=== PATIENT | female | born 1945 | race Hispanic/Latino ===

== ENCOUNTER 2019-07-04 17:45 | Emergency (ER) | payer MEDICARE, MEDICAID, SELFPAY ==
[2019-07-04 18:07] VITALS: BP 154/76; PULSE 62; RESP 16; TEMP 36.6; O2SAT 99
--- NOTE | 2019-07-04 19:13 | DI.RAD.S_ITS ---
PROCEDURE: XR KNEE LT 1TO2V INDICATIONS: knee pain TECHNIQUE: 2 views of the knee were acquired. COMPARISON: [facility], CR, XR KNEE 3 VIEWS LEFT, 02/13/2018, 15:04. FINDINGS: Bones: No fractures or dislocations. No suspicious bony lesions. Moderate medial femorotibial joint space narrowing is seen, with associated subchondral sclerosis and irregularity. Milder degenerative changes are seen elsewhere. Soft tissues: There is a small joint effusion. No suspicious soft tissue calcifications. IMPRESSION: Osteoarthritic degenerative changes are seen, which are most prominent medially. The imaging appearance is similar to 2018. Dictated by: Kali Charles M.D. on 07/04/2019 at 19:46 Approved by: Kali Charles M.D. on 07/04/2019 at 19:46
--- NOTE | 2019-07-04 19:15 | ED.LOWEXIN ---
HPI - Extremity Injury (Lower) General Chief Complaint: Extremity Injury, Lower Stated Complaint: Alot of pain in LT knee Time Seen by Provider: 07/04/19 19:01 Source: patient and family Mode of arrival: ambulatory Limitations: language barrier History of Present Illness HPI Narrative: Patient is a 73-year-old female. Is Bengali-speaking only however is in the emergency department with her daughter who can speak Icelandic. The initial HPI and review of systems was provided by the patient's daughter. The translation line was then used to speak directly with the patient. Was reported that approximately 4 months ago the patient started to have a rash on her left knee. Patient's daughter states that she was seen by a ?specialist? who diagnosed her with shingles. It does not appear that she was started on any antiviral medications. She was given a prescription of gabapentin that she has been taking. They report that over the past several days/weeks patient has had an increase in the pain on her left knee. Patient does describe it as a deep pain on the inside of the knee and also pain on the skin. There is no further rashes apparent today. No fevers. No specific trauma. patient does not have a history of gout. Related Data Previous Rx's Medication Instructions Recorded hydrocodone-acetaminophen [[place]] 1 tab PO Q4-6H PRN #14 tab 07/04/19 naproxen [Naprosyn] 500 mg PO BID PRN #60 tab 07/04/19 Allergies Allergy/AdvReac Type Severity Reaction Status Date / Time No Known Drug Allergies Allergy Verified 07/04/19 18:11 Review of Systems Review of Systems Narrative: Provided by the patient and the daughter Constitutional Constitutional: Denies fever(s) and Denies headache(s) ENT Ears, Nose, Mouth, and Throat: Denies headache(s) and Denies disequilibrium Cardiovascular Cardiovascular: Denies chest pain and Denies dyspnea Respiratory Respiratory: Denies dyspnea Gastrointestinal Gastrointestinal: Denies abdominal pain, Denies nausea and Denies vomiting Genitourinary Genitourinary: Denies dysuria Musculoskeletal Musculoskeletal: Reports abnormal gait Comments: Left knee pain Integumentary/Breasts Skin/Breast: Denies rash Neurologic Neurologic: Reports abnormal gait, Denies behavioral changes, Denies headache(s) and Denies disequilibrium Psychiatric Psychiatric: Denies behavioral changes Hematologic/Lymphatic Hematologic/Lymphatic: Denies easy bleeding and Denies easy bruising Allergic/Immunologic Allergic/Immunologic: Denies urticaria PFSH Medical History Arthritis (Acute) Shingles (Acute) Social History Smoking Status: Never smoker Social History Smoking Status: Never smoker Exam Initial Vital Signs Initial Vital Signs: Vital Signs Temperature 97.8 F 07/04/19 18:07 Pulse Rate 62 07/04/19 18:07 Respiratory Rate 16 07/04/19 18:07 Blood Pressure 154/76 H 07/04/19 18:07 Pulse Oximetry 99 07/04/19 18:07 Const General: cooperative, healthy appearing, comfortable, well developed and well groomed Orientation: alert and awake HENPA Head: normal to inspection and normocephalic Resp Effort & Inspection: normal respiratory effort Auscultation: clear to auscultation bilaterally Cardio Rate: regular rate Rhythm: regular rhythm Pulses: dorsalis pedis present on the left Skin Lesions: no lesions Rashes: no rashes Neuro General: alert and awake Speech: speech normal Motor: muscle tone normal throughout Sensory Exam: no sensory deficits noted Extrem General: normal to inspection, capillary refill normal and No edema Other: No swelling about the left knee. Does have tenderness to palpation with flexion of the knee. Left ankle left hip and left thigh and left lower leg unremarkable. no effusion of the left knee. Psych Appearance: grossly normal and well kempt Course Orders Ordered: ED Orders 07/04/19 19:13 XR knee LT 1to2V Stat 07/04/19 19:40 Basic Metabolic Panel Stat C-Reactive Protein Quant Stat Complete Blood Count AUTO DIFF Stat Erythrocyte Sedimentation Rate Stat Uric Acid Stat Discontinued Medications Morphine Sulfate (Morphine) 4 mg IV NOW ONE Stop: 07/04/19 19:14 Last Admin: 07/04/19 19:47 Dose: 4 mg Documented by: MARIMAR Vital Signs Vital signs: Vital Signs - 8 hr 07/04/19 18:07 07/04/19 21:40 Temperature 97.8 F Pulse Rate 62 76 Respiratory Rate 16 16 Blood Pressure 154/76 H 159/72 H Pulse Oximetry 99 98 MDM - Extremity Injury (Lower) Lab Data Attestation: I reviewed the patient's lab results. Result diagrams: 07/04/19 19:40 07/04/19 19:40 Labs: Lab Results 07/04/19 07/04/19 07/04/19 Range/Units 19:40 19:40 19:40 WBC 9.1 (4.5-11.0) X10^3/uL RBC 4.48 (4.0-5.2) X10^6/uL Hgb 13.7 (12.0-16.0) g/dL Hct 40.4 (36-46) % MCV 90.1 (80-100) fL MCH 30.6 (26-34) PG MCHC 34.0 (30-36) % RDW 13.1 (11.6-14.8) % Plt Count 310 (150-400) X10^3/uL Neut % (Auto) 52.6 (50-75) % Lymph % (Auto) 33.3 (25-40) % [place] % (Auto) 10.6 (3-14) % Eos % (Auto) 2.7 (2-4) % Baso % (Auto) 0.8 (0-2) % Neut # (Auto) 4800 (1593-9149) /uL Lymph # (Auto) 3000 (3438-2509) /uL [place] # (Auto) 1000 H (0-900) /uL Eos # (Auto) 200 (0-450) /uL Baso # (Auto) 100 (0-100) /uL ESR 30 H (0-20) MM/HR Sodium 141 (137-145) mmol/L Potassium 3.8 (3.4-5.1) mmol/L Chloride 103 (98-107) mmol/L Carbon Dioxide 29 (22-32) mmol/L BUN 11 (7-17) mg/dL Creatinine 0.40 L (0.52-1.04) mg/dL Estimated GFR > 60.0 (>60) mL/min BUN/Creatinine Ratio 27.5 H (6-22) Glucose 102 (80-110) mg/dL Uric Acid 4.5 (2.5-6.2) mg/dL Calcium 10.0 (8.4-10.2) mg/dL C-Reactive Protein 0.5 (<1.0) mg/dL Imaging Data Knee x-ray: Radiologist's impression: [address] [address] XRay Report Signed Patient: Lulu Chavez R#: [id number] : 4Acct:[id number] Age/Sex: 73 / FDate of Service: 07/04/19 Loc: ED Accession Number: [id number] Procedure: XR knee LT 1to2V Ordering Provider: Eitan Miranda D.O. PROCEDURE: XR KNEE LT 1TO2V INDICATIONS: knee pain TECHNIQUE: 2 views of the knee were acquired. COMPARISON: [facility], CR, XR KNEE 3 VIEWS LEFT, 02/13/2018, 15:04. FINDINGS: Bones: No fractures or dislocations. No suspicious bony lesions. Moderate medial femorotibial joint space narrowing is seen, with associated subchondral sclerosis and irregularity. Milder degenerative changes are seen elsewhere. Soft tissues: There is a small joint effusion. No suspicious soft tissue calcifications. IMPRESSION: Osteoarthritic degenerative changes are seen, which are most prominent medially. The imaging appearance is similar to 2018. Dictated by: Kali Charles M.D. on 07/04/2019 at 19:46 Approved by: Kali Charles M.D. on 07/04/2019 at 19:46 MDM Narrative Medical decision making narrative: Patient does report improvement of her symptoms after medications. The x-ray shows no fractures but does show arthritis in the medial compartment the knee. Her skin over the knee shows no signs of cellulitis. She is able to bend her knee however does have some discomfort with this. No fevers. Uric acid, white blood cell count, CRP unremarkable. ESR is elevated but this is nonspecific. I do have a low suspicion for a septic joint. Also him of a low suspicion for a current case of shingles. I do think that the arthritis in her knee is contributing to her symptoms. There is also a strong chance that she has post herpetic neuralgia. I did talk with the family through the translation line regarding symptoms. She is going to continue the gabapentin. We also start her on an anti-inflammatory. They were informed to take this with food. Also send home with a very short course of pain medication. They were given the phone number that they could call to establish a primary provider here in the area. Patient's daughter stated that she has a follow-up with the ?specialist? next week. This was the individual who apparently initially diagnosed the shingles and started the patient on gabapentin. There informed to keep this appointment. They were given return precautions and follow-up instructions. They expressed understanding and agreement with plan. Discharge Plan Departure Patient Disposition: Home Clinical Impression: Arthritis, Post herpetic neuralgia Discharge Date/Time: 07/04/19 21:40 Instructions: DI for Arthritis Activity Restrictions/Additional Instructions: Continue the medication that your currently taking. Take the Naprosyn and as directed with some food. Use the hydrocodone/acetaminophen as needed for breakthrough pain. You can contact 360 help you establish a primary provider here in the local area. Prescriptions: New naproxen [Naprosyn] 500 mg tablet 500 mg PO BID PRN (Reason: pain) Qty: 60 RF: 0 hydrocodone-acetaminophen [[place]] 5-325 mg tablet 1 tab PO Q4-6H PRN (Reason: pain) Qty: 14 RF: 0
[2019-07-04] MEDS: MORPHINE 4 MG/ML INJ IV (19:47)
[2019-07-04 19:49] LABS: Add Manual Diff / Slide Review NO; Basophils Absolute Auto 100 /uL (0-100); Basophils Percent Auto 0.8 % (0-2); Eosinophils Absolute Auto 200 /uL (0-450); Eosinophils Percent Auto 2.7 % (2-4); Hematocrit 40.4 % (36-46); Hemoglobin 13.7 g/dL (12.0-16.0); Lymphocytes Absolute Auto 3000 /uL (1100-4500); Lymphocytes Percent Auto 33.3 % (25-40); Mean Corpuscular Hemoglobin 30.6 PG (26-34); Mean Corpuscular Volume 90.1 fL (80-100); Monocytes Absolute Auto 1000 /uL (0-900); Monocytes Percent Auto 10.6 % (3-14); Neutrophils Absolute Auto 4800 /uL (1500-7000); Neutrophils Percent Auto 52.6 % (50-75); Platelet Count 310 X10^3/uL (150-400); Red Blood Cell Count 4.48 X10^6/uL (4.0-5.2); Red Cell Distribution Width 13.1 % (11.6-14.8); White Blood Cell Count 9.1 X10^3/uL (4.5-11.0)
[2019-07-04 20:01] LABS: BUN Creatinine Ratio 27.5 (6-22); Blood Urea Nitrogen 11 mg/dL (7-17); C-Reactive Protein Quant 0.5 mg/dL (<1.0); Carbon Dioxide 29 mmol/L (22-32); Chloride 103 mmol/L (98-107); Estimated Glomerular Filt Rate > 60.0 mL/min (>60); Glucose 102 mg/dL (80-110); HEMOLYSIS < 15 (0-50); Potassium 3.8 mmol/L (3.4-5.1); Sodium 141 mmol/L (137-145)
[2019-07-04 20:11] LABS: Uric Acid 4.5 mg/dL (2.5-6.2)
[2019-07-04 20:21] LABS: Erythrocyte Sedimentation Rate 30 MM/HR (0-20)
[2019-07-04 21:40] VITALS: BP 159/72; PULSE 76; RESP 16; O2SAT 98
== END 2019-07-04 21:40 | disposition home or self-care (01) ==
PROVIDERS: Emergency Provider Emergency Medicine
DX: M17.12 Unilateral primary osteoarthritis, left knee (principal); B02.29 Other postherpetic nervous system involvement
CPT/HCPCS: 36591; 73560; 80048; 84550; 85025; 85651; 86140; 96374; 99282; 99284; J2270

== ENCOUNTER 2022-02-18 12:41 | Emergency (ER) | payer MEDICARE, MEDICAID, SELFPAY ==
[2022-02-18] VITALS (7 sets, daily range): BP systolic 151–158; BP diastolic 65–73; PULSE 87–97; RESP 24; TEMP 36.3; O2SAT 94–98
--- NOTE | 2022-02-18 18:14 | DI.RAD.S_ITS ---
PROCEDURE: XR CHEST 1V INDICATIONS: CHF TECHNIQUE: One view of the chest was acquired. COMPARISON: None. FINDINGS: Surgical changes and devices: None. Lungs and pleura: Interstitial and alveolar pulmonary edema.. No pleural effusions or pneumothorax. Mediastinum: Mediastinal contours appear normal. Heart size is top normal. Bones and chest wall: No suspicious bony lesions. Overlying soft tissues appear unremarkable. IMPRESSION: Congestive heart failure exacerbation Dictated by: Edinson Robb M.D. on 02/18/2022 at 18:31 Approved by: Edinson Robb M.D. on 02/18/2022 at 18:31
[2022-02-18 18:39] LABS: Add Manual Diff / Slide Review NO; Basophils Absolute Auto 100 /uL (0-100); Basophils Percent Auto 1.1 % (0-2); Eosinophils Absolute Auto 200 /uL (0-450); Eosinophils Percent Auto 3.3 % (2-4); Hematocrit 38.2 % (36-46); Hemoglobin 13.1 g/dL (12.0-16.0); Lymphocytes Absolute Auto 2100 /uL (1100-4500); Lymphocytes Percent Auto 32.8 % (25-40); Mean Corpuscular HGB Conc 34.3 % (30-36); Mean Corpuscular Hemoglobin 29.4 PG (26-34); Mean Corpuscular Volume 85.6 fL (80-100); Monocytes Absolute Auto 1000 /uL (0-900); Monocytes Percent Auto 14.7 % (3-14); Neutrophils Absolute Auto 3100 /uL (1500-7000); Neutrophils Percent Auto 48.1 % (50-75); Platelet Count 311 X10^3/uL (150-400); Red Blood Cell Count 4.46 X10^6/uL (4.0-5.2); Red Cell Distribution Width 13.6 % (11.6-14.8); White Blood Cell Count 6.5 X10^3/uL (4.5-11.0)
[2022-02-18 18:47] LABS: INR 1.2 (0.9-1.3); Prothrombin Time 13.2 SECONDS (10.1-12.7)
[2022-02-18 18:52] LABS: Alanine Aminotransferase 26 IU/L (<35); Albumin 3.7 g/dL (3.5-5.0); Albumin Globulin Ratio 1.1 (1.0-2.8); Alkaline Phosphatase 78 U/L (38-126); Aspartate Aminotransferase 38 IU/L (14-36); Bilirubin Total 0.5 mg/dL (0.2-1.3); Blood Urea Nitrogen 5 mg/dL (7-17); Calcium 8.6 mg/dL (8.4-10.2); Carbon Dioxide 32 mmol/L (22-32); Chloride 101 mmol/L (98-107); Creatine Kinase 83 U/L (30-135); Estimated Glomerular Filt Rate > 60 mL/min (>60); Globulin 3.3 g/dL (1.7-4.1); Glucose 109 mg/dL (80-110); HEMOLYSIS < 15 (0-50); Potassium 3.1 mmol/L (3.4-5.1); Sodium 140 mmol/L (137-145)
--- NOTE | 2022-02-18 18:55 | ED.LOWEXIN ---
HPI - Extremity Injury (Lower) General Chief Complaint: Extremity Injury, Lower Stated Complaint: Swelling in both knees Time Seen by Provider: 02/18/22 18:07 Source: patient and family Mode of arrival: Wheelchair History of Present Illness HPI Narrative: 76F nonsmoking Slovak speaker presents with family members and a chief complaint of a few days of swelling and pain in both of her feet and lower legs as well as fatigue. She states that she becomes more short of breath with walking and has a difficult time lying flat as it also makes her short of breath. She has no headache or blurred vision. She denies chest pain, fever or chills. She has no nausea, vomiting or diarrhea. She has had similar episodes in the past and has taken Lasix which seemed to improve her symptoms. All portions of history, physical exam and disposition were performed with telephonic Slovak-speaking tissue inserter Related Data Previous Rx's Medication Instructions Recorded hydrocodone 5 mg-acetaminophen 325 1 tab PO Q4-6H PRN #14 tab 07/04/19 mg tablet ([place]) naproxen 500 mg tablet (Naprosyn) 500 mg PO BID PRN #60 tab 07/04/19 furosemide 20 mg tablet (Lasix) 10 mg PO BID #10 tab 02/18/22 potassium chloride 20 mEq 20 meq PO DAILY #7 tab 02/18/22 tablet,extended release Allergies Allergy/AdvReac Type Severity Reaction Status Date / Time No Known Drug Allergies Allergy Verified 07/04/19 18:11 Review of Systems Review of Systems Narrative: GENERAL:see HPI HEENT: Denies sinus pain, ear pain, sore throat, difficulty swallowing, dizziness. RESPIRATORY: see HPI CARDIOVASCULAR: see HPI GASTROINTESTINAL: Denies nausea, vomiting, abdominal pain, diarrhea, constipation, melena. : Denies dysuria, frequency, incontinence, hematuria, urinary retention. MUSCULOSKELETAL: denies weakness, joint pain, or bony pain SKIN: Denies rash, skin lesions, or other NEUROLOGIC: Denies weakness, headache, numbness, change in speech, confusion, seizures, incoordination. PSYCHIATRIC: No concerning psychosocial issues. 12 point review of systems is negative except for those stated above Patient History Medical History (Updated 02/18/22 @ 20:20 by Wolf Hartley DO) Arthritis Shingles Social History Smoking Status: Never smoker Smoking Status: Never smoker alcohol intake frequency: 0-2 drinks per day Substance Use Type: does not use Exam Narrative Exam Narrative: GENERAL: [76 year old patient appears stated age. Well-developed patient, in mild distress. HEAD: Atraumatic. Normocephalic. EYES: Pupils equal round and reactive. Extraocular motions intact. No scleral icterus. No injection or drainage. ENT: Nose without bleeding, purulent drainage. Throat without erythema, tonsillar hypertrophy or exudate. Airway patent. NECK: Trachea midline. Non tender CARDIOVASCULAR: Regular rate and rhythm without murmurs, gallops, or rubs. RESPIRATORY: Faint crackles in bilateral bases, no hypoxemia, increased work of breathing or use of accessory muscles GASTROINTESTINAL: Abdomen soft, non-tender, nondistended. EXTREMITIES: 2+ pitting edema bilateral lower extremities BACK: Nontender without deformity or crepitance. No flank tenderness. NEURO: AOx3. SKIN: No rash or erythema of visible areas Initial Vital Signs Initial Vital Signs: Vital Signs Temperature 97.4 F L 02/18/22 13:26 Pulse Rate 93 H 02/18/22 13:26 Respiratory Rate 24 02/18/22 13:26 Blood Pressure 151/65 H 02/18/22 13:26 Pulse Oximetry 94 02/18/22 13:26 Course Orders Ordered: ED Orders 02/18/22 18:25 Complete Blood Count AUTO DIFF Stat Comprehensive Metabolic Panel Stat NT-proBNP (BNP-Adult 18+) Stat Prothrombin Time INR Stat Troponin & CK Cardiac Panel Stat Discontinued Medications Furosemide (Furosemide 40 Mg/4 Ml Vial) 40 mg IV NOW ONE Stop: 02/18/22 18:14 Last Admin: 02/18/22 19:06 Dose: 40 mg Documented by: GRACE Potassium Chloride (Potassium Chloride 20 Meq/15 Ml Udc) 40 meq PO NOW ONE Stop: 02/18/22 20:04 Last Admin: 02/18/22 20:16 Dose: 40 meq Documented by: GRACE Vital Signs Vital signs: Vital Signs - 8 hr 02/18/22 19:30 02/18/22 20:00 02/18/22 20:20 Pulse Rate 90 94 H 97 H Blood Pressure Pulse Oximetry 94 95 98 02/18/22 20:21 Pulse Rate Blood Pressure 153/67 H Pulse Oximetry MDM - Extremity Injury (Lower) Lab Data Result diagrams: 02/18/22 18:25 02/18/22 18:25 Labs: Lab Results 02/18/22 02/18/22 02/18/22 Range/Units 18:25 18:25 18:25 WBC 6.5 (4.5-11.0) X10^3/uL RBC 4.46 (4.0-5.2) X10^6/uL Hgb 13.1 (12.0-16.0) g/dL Hct 38.2 (36-46) % MCV 85.6 (80-100) fL MCH 29.4 (26-34) PG MCHC 34.3 (30-36) % RDW 13.6 (11.6-14.8) % Plt Count 311 (150-400) X10^3/uL Neut % (Auto) 48.1 L (50-75) % Lymph % (Auto) 32.8 (25-40) % [place] % (Auto) 14.7 H (3-14) % Eos % (Auto) 3.3 (2-4) % Baso % (Auto) 1.1 (0-2) % Neut # (Auto) 3100 (8574-6234) /uL Lymph # (Auto) 2100 (4709-4608) /uL [place] # (Auto) 1000 H (0-900) /uL Eos # (Auto) 200 (0-450) /uL Baso # (Auto) 100 (0-100) /uL PT 13.2 H (10.1-12.7) SECONDS INR 1.2 (0.9-1.3) Sodium 140 (137-145) mmol/L Potassium 3.1 L (3.4-5.1) mmol/L Chloride 101 (98-107) mmol/L Carbon Dioxide 32 (22-32) mmol/L BUN 5 L (7-17) mg/dL Creatinine 0.50 L (0.52-1.04) mg/dL Estimated GFR > 60 (>60) mL/min BUN/Creatinine Ratio 10.0 (6-22) Glucose 109 (80-110) mg/dL Calcium 8.6 (8.4-10.2) mg/dL Total Bilirubin 0.5 (0.2-1.3) mg/dL AST 38 H (14-36) IU/L ALT 26 (<35) IU/L Alkaline Phosphatase 78 (38-126) U/L Total Creatine Kinase 83 (30-135) U/L CK-MB (CK-2) TNP CK-MB (CK-2) Rel Index TNP Troponin I < 0.012 (0.01-0.034) ng/mL NT-Pro-B Natriuret Pep 89 (<450) pg/mL Total Protein 7.0 (6.3-8.2) g/dL Albumin 3.7 (3.5-5.0) g/dL Globulin 3.3 (1.7-4.1) g/dL Albumin/Globulin Ratio 1.1 (1.0-2.8) Imaging Data Chest x-ray: Radiologist's Impression: [address] [address] XRay Report Signed Patient: Lulu Chavez MR#: [id number] : 1945 Acct:[id number] Age/Sex: 76 / F Date of Service: 02/18/22 Loc: ED Accession Number: [id number] ?? Procedure: XR chest 1V Ordering Provider: Wolf Hartley D.O. PROCEDURE:? XR CHEST 1V ? INDICATIONS:? CHF ? TECHNIQUE:? One view of the chest was acquired.? ? COMPARISON:? None. ? FINDINGS:? ? Surgical changes and devices:? None.? ? Lungs and pleura:? Interstitial and alveolar pulmonary edema..? No pleural effusions or pneumothorax.? ? Mediastinum:? Mediastinal contours appear normal.? Heart size is top normal.? ? Bones and chest wall:? No suspicious bony lesions.? Overlying soft tissues appear unremarkable.? ? IMPRESSION:? Congestive heart failure exacerbation ? ? Dictated by: Edinson Robb M.D. on 02/18/2022 at 18:31 ? ? Approved by: Edinson Robb M.D. on 02/18/2022 at 18:31 MDM Narrative Medical decision making narrative: Patient with reassuring history and physical exam consistent with acute CHF exacerbation. She has no evidence of respiratory distress, tachypnea or hypoxemia. Labs and imaging are reassuring. She has extensive support and all family members with the room during history, physical exam and discharge instructions with the assistance of telephonic tissue inserter. Return precautions discussed and questions answered to their apparent satisfaction Discharge Plan Departure Patient Disposition: Home Clinical Impression: CHF (congestive heart failure) Instructions: DI for Heart Failure Activity Restrictions/Additional Instructions: *You have been diagnosed with [Acute CHF. Thankfully your history, physical exam and labs are very reassuring and there is no indication for hospitalization or other significant intervention. *What to do: *Please continue to take your regular medications as directed. [x] New medication prescriptions sent to your pharmacy: [ [facility] [address]] [ ] New medication written as a paper prescription [ ] No new medications given *Please follow up with your primary care provider in 2-3 days, call for an appointment. Let them know you were seen in the Emergency Department and that we ask that you be seen in follow up. We will electronically transmit a record of today's note if your PCP is in our system *If you do not have a primary care provider please contact the [facility] Resource line at [phone]. They will ask some questions about your medical history and help get you set up with a doctor in the community. *Return to Emergency Department if you should have any new, worsening or concerning symptoms, such as [fever greater than 101 F, shaking chills, worsening pain, persistent vomiting or other bothersome symptoms] Prescriptions: New furosemide [Lasix] 20 mg tablet 10 mg PO BID Qty: 10 0RF potassium chloride 20 mEq tablet extended release 20 meq PO DAILY Qty: 7 0RF No Action naproxen [Naprosyn] 500 mg tablet 500 mg PO BID PRN (Reason: pain) Qty: 60 0RF hydrocodone-acetaminophen [[place]] 5-325 mg tablet 1 tab PO Q4-6H PRN (Reason: pain) Qty: 14 0RF
[2022-02-18 19:04] LABS: NT-proBNP (BNP-Adult 18+) 89 pg/mL (<450); Troponin I < 0.012 ng/mL (0.01-0.034)
[2022-02-18] MEDS: FUROSEMIDE 40 MG/4 ML VIAL IV (19:06)
--- NOTE | 2022-02-18 20:10 | PC.NURSE ---
Information Technology Data Analyst [id number] used for Dr Hartley assessment and evaluation.
[2022-02-18] MEDS: POTASSIUM CHLORIDE 20 MEQ/15 ML UDC 40 MEQ PO (20:16)
== END 2022-02-18 20:23 | disposition home or self-care (01) ==
PROVIDERS: Emergency Provider Emergency Medicine
DX: I50.9 Heart failure, unspecified (principal)
CPT/HCPCS: 36415; 71045; 80053; 82550; 83880; 84484; 85025; 85610; 96374; 99284; J1940